=== PATIENT | female | born 1985 | race Two or more races ===

== ENCOUNTER 2019-07-26 18:10 | Inpatient (IN) | payer BC, MEDICAID ==
[~2019-07-26] VITALS: Ht 162.6 cm; Wt 81.6 kg
--- NOTE | 2019-07-26 20:20 | NUR ---
NURSE NOTES: Pt. received from Ramya, report received from Myra at [facility]. Pt. AAOx4, on room air, complaints of abdominal pain that is tolerable. No indications of respiratory distress at this time. VS stable, belongings checked and signed, and pt. oriented to room. IV site left forearm 18g asymptomatic, intact, and patent. Bed is low and locked, side rails x2 up, and call light is in reach. Awaiting orders, will continue to monitor.
[2019-07-26] MEDS ORDERED: Mylanta II UD 30ml ORAL PRN (20:45)
[2019-07-26] MEDS ORDERED: Milk of Magnesia 30ml Ud ORAL PRN (20:45)
[2019-07-26] MEDS ORDERED: LORazepam 1mg tab ORAL PRN (20:45)
[2019-07-26] MEDS ORDERED: DiphenhydrAMINE 25mg Tab ORAL PRN (20:45)
[2019-07-26] MEDS ORDERED: Morphine Sulfate 2mg/ml Inj(IV/IM USE ONLY) IVP PRN ×2 (20:45)
--- NOTE | 2019-07-26 20:45 | Consultation ---
History of Present Illness Present Illness HPI This is a very pleasant 34-year-old female otherwise healthy status post section x4 known history of cholelithiasis symptomatic who presented to [facility] with acute onset of right upper quadrant abdominal pain radiating to the back. Patient states pain began approximately 3 to 4 days ago and has been worsening since. Associated nausea and nonbloody emesis. Had a ultrasound identifying cholelithiasis, gallbladder sludge, distended gallbladder with positive Jewell sign. Pain not improving and transferred to [facility] for remainder of care and management. Surgery called to evaluate and assist with care. Patient seen, patient evaluated , chart reviewed. Patient states that she still has right upper quadrant nominal pain which is mildly better with narcotic pain medication. States pain has not resolved since onset and this is the worst episode she has had over the course of the few years. Allergies: Coded Allergies: No Known Allergies (Unverified , 07/26/19) Patient History History Provided By: Patient, Medical Record, PMD Healthcare decision maker N Resuscitation status Advanced Directive on File Past Medical/Surgical History Past Medical/Surgical History: (1) Acute cholecystitis Review of Systems Review of Symptoms General ROS: no weight loss or fever Psychological ROS: no depression or mood changes, no memory loss Ophthalmic ROS: no visual changes or eye irritation ENT ROS: no nasal congestion, hearing loss, dizziness Allergy and Immunology ROS: no allergic symptoms or urticaria Hematological and Lymphatic ROS: no swollen glands, unusual bleeding or bruising Endocrine ROS: no polyuria, polydipsia, weight changes, temperature intolerance Respiratory ROS: no cough, shortness of breath, or wheezing Cardiovascular ROS: no chest pain or dyspnea on exertion Gastrointestinal ROS:abdominal pain, bright red blood in stool. Musculoskeletal ROS: no myalgias or arthralgias Neurological ROS: no TIA or stroke symptoms Dermatological ROS: no new or changing skin lesions, rashes or pruritis Physical Exam Physical Exam General appearance: alert, cooperative, no distress, appears stated age Head: Normocephalic, without obvious abnormality, atraumatic Eyes: conjunctivae/corneas clear. PERRL, EOM's intact. Fundi benign Throat: Lips, mucosa, and tongue normal. Teeth and gums normal Neck: supple, symmetrical, trachea midline, no adenopathy, thyroid: not enlarged, symmetric, no tenderness/mass/nodules, no carotid bruit and no JVD Lungs: clear to auscultation bilaterally Heart: regular rate and rhythm, S1, S2 normal, no murmur, click, rub or gallop Abdomen: soft, RUQ tender. Bowel sounds normal. No masses, no organomegaly Extremities: extremities normal, atraumatic, no cyanosis or edema Pulses: 2+ and symmetric Skin: Skin color, texture, turgor normal. No rashes or lesions Neurologic: Grossly normal Medications Current Medications Medications (Trade) Dose Ordered Sig/Kelsey Route PRN Reason Start Time Stop Time Status Last Admin Dose Admin Acetaminophen (Tylenol) 650 mg Q4H PRN ORAL fever 07/26/19 20:45 08/25/19 20:44 UNV Al Hydroxide/Mg Hydroxide (Mylanta II) 30 ml Q6H PRN ORAL dyspepsia 07/26/19 20:45 08/25/19 20:44 UNV Dextrose (Dextrose 50%) 25 ml Q30M PRN IV Hypoglycemia 07/26/19 20:45 08/25/19 20:44 UNV Dextrose/ Electrolytes 1,000 ml @ 100 mls/hr Q10H IV 07/26/19 21:40 08/25/19 21:39 UNV Diphenhydramine HCl (Benadryl) 25 mg Q6H PRN ORAL Itching/Pruritis 07/26/19 20:45 08/25/19 20:44 UNV Docusate Sodium (Colace) 100 mg EVERY 12 HOURS ORAL 07/26/19 21:00 08/25/19 20:59 UNV Famotidine (Pepcid) 40 mg DAILY ORAL 07/27/19 09:00 08/26/19 08:59 UNV Heparin Sodium (Porcine) (Heparin 5000 units/ml) 5,000 units EVERY 12 HOURS SUBQ 07/26/19 21:00 08/25/19 20:59 UNV Lorazepam (Ativan) 1 mg Q4H PRN ORAL For Anxiety 07/26/19 20:45 08/02/19 20:44 UNV Magnesium Hydroxide (Mom) 30 ml HSPRN PRN ORAL Constipation 07/26/19 20:45 08/25/19 20:44 UNV Morphine Sulfate (Morphine Sulfate) 1 mg EVERY 4 HOURS PRN IVP For Pain 07/26/19 20:45 08/02/19 20:44 UNV Morphine Sulfate (Morphine Sulfate) 2 mg EVERY 4 HOURS PRN IVP Moderate Pain (Pain Scale 4-6) 07/26/19 20:45 08/02/19 20:44 UNV Morphine Sulfate (Morphine Sulfate) 4 mg EVERY 4 HOURS PRN IVP Severe Pain (Pain Scale 7-10) 07/26/19 20:45 08/02/19 20:44 UNV Ondansetron HCl (Zofran) 4 mg Q6H PRN IVP Nausea & Vomiting 07/26/19 20:45 08/25/19 20:44 UNV Temazepam (Restoril) 15 mg HSPRN PRN ORAL Insomnia 07/26/19 20:45 08/02/19 20:44 UNV Assessment/Plan Problem List: (1) Acute cholecystitis Assessment & Plan: This is a 34-year-old female with acute cholecystitis. Afebrile, hemodynamically stable, labs as above Ultrasound with distended gallbladder, cholelithiasis, gallbladder sludge On examination persistently tender in the right upper quadrant with a positive Jewell's I had a long discussion with the patient at the bedside in regards to above findings, care, management. Patient has been on medical management for greater than 24 hours without significant improvement still requiring narcotic pain medication. She continues to have right upper quadrant pain and is significantly tender on examination. Given these findings cholecystectomy is indicated and recommended. I discussed this with patient and she expressed understanding and states that she has known she needed her gallbladder out for some time and given the acuity and severity of this episode would like to proceed as soon as possible. N.p.o. IV fluids IV antibiotics Consent To OR for laparoscopic versus open cholecystectomy Thank you for allowing me to participate in patient's care ICD Codes: K81.0 - Acute cholecystitis SNOMED: [id number] Jeff Mi Jul 26, 2019 20:45
[2019-07-26] MEDS ORDERED: D5 1/2NS w/KCl 20mEq 1,000 ML IV SCH (21:15)
--- NOTE | 2019-07-26 21:16 | History & Physical ---
History and Physical History & Physicial Stepan Benjamin MD Jul 26, 2019 21:16
--- NOTE | 2019-07-26 22:15 | History and Physical Report ---
DATE OF ADMISSION: 07/26/2019 CHIEF COMPLAINT: Right upper quadrant abdominal pain. HISTORY OF PRESENT ILLNESS: This is a 34-year-old female with past medical history significant for migraine headaches, gallstone, who was presented initially to [facility], complaining about abdominal pain. She stated that the abdominal pain started about 6 hours prior to arrival to the emergency room, some radiation to the back, associated with nausea and vomiting. The patient stated that bilious emesis with acid reflux, no blood. The patient has known history of gallstone and stated that this pain has been persistent and much more severe than prior attacks, last attack about 6 years ago while she was shortly after lunch. 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 She had a ultrasound then performed gallstone and was concerned about a gallstone in the neck of the gallbladder. She denies any fever or chills. Denies any dysuria or frequency. She has described the pain 10/10, mostly in the epigastric and right upper quadrant, sharp, stabbing pain. Shortly after initial evaluation, the patient was evaluated in the emergency department. The patient was transferred to [facility] for further evaluation and possible surgical intervention. The patient was admitted to the hospital with acute cholecystitis. PAST MEDICAL HISTORY: Significant for gallstones and migraine headache. PAST SURGICAL HISTORY: Significant for . MEDICATIONS: Medications at home, Tylenol p.r.n. as needed for migraine headache. ALLERGIES: No known drug allergies. SOCIAL HISTORY: She smokes three cigarettes a day. Social drinks. No substance abuse. She is a MA, works in the [employer]. FAMILY HISTORY: Mother with history of hypertension and diabetes runs in the maternal side. Grandmother with history of liver cancer and . Grandfather with history of heart disease. REVIEW OF SYSTEMS: Mostly as above. Denies any dysuria, frequency, hematuria. Denies any hemoptysis or hematochezia, complained about right upper quadrant abdominal pain associated with nausea and vomiting. Denies any fall or head trauma. Denies any suicidal or homicidal ideation. PHYSICAL EXAMINATION: VITAL SIGNS: On admission from the ER at [facility], blood pressure 106/51, pulse of 68, respiration 18, temperature 98.1. GENERAL: The patient is awake and responsive, in no acute distress. HEAD AND NECK: Pupils are equal and reactive to light. Anicteric. Neck was supple. No JVD. LUNGS: Clear. No wheezing or rales. HEART: S1, S2. Regular rhythm. No gallops. ABDOMEN: Soft, nondistended. Tender in the right upper quadrant. No rebound tenderness. No fluid shift. EXTREMITIES: No cyanosis, clubbing, or edema. NEUROLOGIC: Cranial nerves II through XII grossly intact. Motor is 5/5 in all extremities. RECTAL/GENITOURINARY: Refused and deferred. PSYCHIATRIC: Mood and affect is intact. LABORATORY DATA: Laboratory from the [facility], CBC of 8.1, hemoglobin 13, hematocrit 41, platelet 246,000. Sodium 137, potassium 3.7, chloride 104, bicarb 23, BUN 9, creatinine 0.7, GFR is 106. Total bilirubin of 0.6, AST of 13, ALT of 24, and lipase is 7. Beta HCG less than 1. The patient had a abdominal ultrasound done, noted to have cholecystitis with gallbladder, demonstrated multiple calculi, at least 1 calculi appear to be large in the neck of the gallbladder and one appeared mobile. Sludge visualized in the gallbladder. Positive sonographic Jewell sign. ASSESSMENT: 1. Right upper quadrant pain, most likely secondary to the gallstone and acute cholecystitis. 2. Dehydration. 3. Migraine headache. PLAN: 1. Admit the patient to the surgical floor. 2. We will follow up with Dr. Mi. 3. Consultation from General Surgery. 4. Kept the patient NPO. 5. IV hydration. 6. Code status is Full Code. 7. DVT prophylaxis, heparin subcutaneous. 8. We will start the patient on broad-spectrum antibiotic with Zosyn. Stepan Benjamin M.D. DR: HU JOB#: [id number] CC:
[2019-07-26] MEDS: Piperacillin/Tazobactam 3.375 GM in NS 110 ML IVPB SCH (22:17)
[2019-07-26] MEDS: D5 1/2NS w/KCl 20mEq 1,000 ML IV SCH (22:17)
[2019-07-26] MEDS: Docusate 100mg cap ORAL SCH (22:17)
[2019-07-27] VITALS (13 sets, daily range): BP systolic 96–146; BP diastolic 41–88
[2019-07-27] MEDS: Morphine Sulfate 4mg/ml Inj (IV USE ONLY) IVP PRN ×3 (00:41→20:03)
--- NOTE | 2019-07-27 02:45 | NUR ---
NURSE NOTES: Pt up to use the restroom, ambulates with steady gait. at beside.
[2019-07-27] MEDS: Piperacillin/Tazobactam 3.375 GM in NS 110 ML IVPB SCH ×3 (06:22→21:44)
[2019-07-27 06:40] LABS: EOSINOPHILS % (AUTO) 2.2 % (0.0-3.0); HEMATOCRIT 37.4 % (37.0-47.0); HEMOGLOBIN 12.6 G/DL (12.0-16.0); LYMPHOCYTES % (AUTO) 34.8 % (20.0-45.0); MEAN CORPUSCULAR VOLUME 85 FL (80-99); MONOCYTES % (AUTO) 6.7 % (1.0-10.0); NEUTROPHILS % (AUTO) 55.2 % (45.0-75.0); PLATELET COUNT 179 K/UL (150-450); RED BLOOD COUNT 4.39 M/UL (4.20-5.40); RED CELL DISTRIBUTION WIDTH 12.4 % (11.6-14.8); WHITE BLOOD COUNT 5.4 K/UL (4.8-10.8)
[2019-07-27 06:54] LABS: ALANINE AMINOTRANSFERASE 32 U/L (12-78); ALBUMIN 2.9 G/DL (3.4-5.0); ALBUMIN/GLOBULIN RATIO 0.8 (1.0-2.7); ALKALINE PHOSPHATASE 54 U/L (46-116); AMYLASE 16 U/L (25-115); ANION GAP 8 mmol/L (5-15); ASPARTATE AMINO TRANSFERASE 17 U/L (15-37); BILIRUBIN,TOTAL 0.8 MG/DL (0.2-1.0); BLOOD UREA NITROGEN 8 mg/dL (7-18); CALCIUM 8.2 MG/DL (8.5-10.1); CARBON DIOXIDE 26 MMOL/L (21-32); CHLORIDE 108 MMOL/L (98-107); CREATININE 0.7 MG/DL (0.55-1.30); POTASSIUM 3.5 MMOL/L (3.5-5.1); SODIUM 142 MMOL/L (136-145)
--- NOTE | 2019-07-27 07:24 | NUR ---
HAND-OFF: Report given to SENDY Gates.
[2019-07-27 07:58] LABS: PHOSPHORUS 4.2 MG/DL (2.5-4.9)
[2019-07-27] MEDS: D5 1/2NS w/KCl 20mEq 1,000 ML IV SCH (08:00)
--- NOTE | 2019-07-27 08:45 | NUR ---
CASE MANAGEMENT: INITIAL REVIEW 34YR OLD FEMALE FROM [place] CC: ABD PAIN IS:ACUTE CHOLECYSTIS . DEHYDRATION . MIGRAINE HEADACHE 98.0 51 20 109/50 88% ON RA CA+ 8.2 MG 1.7 ALB 2.9 VEE 16 LIPASE 56 SI:IV ZOSYN Q8HR IV D5@100ML/HR MORPHINE SULFATE Q4HR/PRN \: 3E MED SURG UNIT PLAN: SURG CONSULT NPO IV HYDRATION
[2019-07-27] MEDS: Heparin 5000 units/ml inj SUBQ SCH ×2 (09:00→20:04)
[2019-07-27] MEDS: Docusate 100mg cap ORAL SCH ×2 (09:41→21:08)
--- NOTE | 2019-07-27 10:18 | Pre-Procedure Note/Attestation ---
Pre-Procedure Note/Attestation Complete Prior to Procedure Planned Procedure: not applicable Procedure Narrative: laparoscopic cholecystectomy possible open Indications for Procedure Pre-Operative Diagnosis: acute cholecystitis Attestation I attest that I discussed the nature of the procedure; its benefits; risks and complications; and alternatives (and the risks and benefits of such alternatives ), prior to the procedure, with the patient (or the patient's legal inventory representative). I attest that, if there was a reasonable possibility of needing a blood transfusion, the patient (or the patient's legal inventory representative) was given the [facility] standardized written summary, pursuant to the Kyle Itzel Blood Safety Act ([place] Health and Safety Code # 1645, as amended). I attest that I re-evaluated the patient just prior to the surgery and that there has been no change in the patient's H&P, except as documented below: Jeff Mi Jul 27, 2019 10:18
[2019-07-27] MEDS ORDERED: Tubing IV Secondary IV ONE (10:52)
[2019-07-27] MEDS ORDERED: Iothalamate Meglumine 60% 50ML INJ ONE (12:08)
[2019-07-27] MEDS ORDERED: Bupivacaine w/Epi 0.5% 30ml Vial INJ ONE (12:08)
[2019-07-27] MEDS ORDERED: Rocuronium Bromide 50mg/5ml Inj IV ONE (12:40)
[2019-07-27] MEDS ORDERED: Propofol 200mg/20ml IV ONE (12:49)
[2019-07-27] MEDS ORDERED: fentaNYL 100 mcg/2 mL IV ONE (12:49)
[2019-07-27] MEDS ORDERED: Midazolam 2mg/2ml Inj ONE (12:49)
[2019-07-27] MEDS ORDERED: Lidocaine 1% MPF 10mg/ml 5ml ONE (12:49)
[2019-07-27] MEDS ORDERED: LR 1000ml ONE (13:00)
[2019-07-27] MEDS ORDERED: Sterile Water Irrig 1000ml IRRIG ONE (13:00)
[2019-07-27] MEDS ORDERED: NS Irrig 1000ml IRRIG ONE ×3 (13:15→13:40)
--- NOTE | 2019-07-27 13:26 | Anethesia Preoperative Eval ---
Anesthesia Pre-op PMH/ROS General Date of Evaluation: Jul 27, 2019 Anesthesiologist: Fabio ASA Score: ASA 2 Mallampati Score Class I : Soft palate, uvula, fauces, pillars visible Class II: Soft palate, uvula, fauces visible Class III: Soft palate, base of uvula visible Class IV: Only hard plate visible Mallampati Classification: Class II Surgeon: Shmuel Diagnosis: acute cholecystitis Surgical Procedure: lalp freddy Anesthesia History: none Family History: no anesthesia problems Allergies: Coded Allergies: No Known Allergies (Unverified , 07/26/19) Medications: see eMAR Patient NPO?: Yes NPO Date: Jul 27, 2019 NPO Time: 0000 Past Medical History Cardiovascular: Denies: HTN, CAD, DC, valve dz, arrhythmia, other Pulmonary: Denies: asthma, COPD, JANIYA, other Gastrointestinal/Genitourinary: Reports: GERD; Denies: CRI, ESRD, other Neurologic/Psychiatric: Denies: dementia, CVA, depression/anxiety, TIA, other Endocrine: Denies: DM, hypothyroidism, steroids, other HEENT: Denies: cataract (L), cataract (R), glaucoma, [place] (L), [place] (R), other Hematology/Immune: Denies: anemia, DVT, bleeding disorder, other Musculoskeletal/Integumentary: Denies: OA, RA, DJD, DDD, edema, other Other: obesity PSxH Narrative: c/s X4 Anesthesia Pre-op Phys. Exam Physician Exam Last Vital Signs Date Time Temp Pulse Resp B/P (MAP) Pulse Ox O2 Delivery O2 Flow Rate FiO2 07/27/19 08:00 98.2 51 18 96/41 (59) 96 07/26/19 22:00 Room Air Constitutional: NAD, other - right eye red and cloudy Cardiovascular: RRR Respiratory: CTA Airway Exam Mallampati Score: Class II MO: full ROM: full Teeth: missing - top, partial bridge, intact Dentures: upper Anesthesia Pre-op A/P Labs Hematology Test 07/27/19 05:35 White Blood Count 5.4 K/UL (4.8-10.8) Red Blood Count 4.39 M/UL (4.20-5.40) Hemoglobin 12.6 G/DL (12.0-16.0) Hematocrit 37.4 % (37.0-47.0) Mean Corpuscular Volume 85 FL (80-99) Mean Corpuscular Hemoglobin 28.6 PG (27.0-31.0) Mean Corpuscular Hemoglobin Concent 33.6 G/DL (32.0-36.0) Red Cell Distribution Width 12.4 % (11.6-14.8) Platelet Count 179 K/UL (150-450) Mean Platelet Volume 7.2 FL (6.5-10.1) Neutrophils (%) (Auto) 55.2 % (45.0-75.0) Lymphocytes (%) (Auto) 34.8 % (20.0-45.0) Monocytes (%) (Auto) 6.7 % (1.0-10.0) Eosinophils (%) (Auto) 2.2 % (0.0-3.0) Basophils (%) (Auto) 1.0 % (0.0-2.0) Coagulation Test 07/27/19 05:35 Prothrombin Time 10.8 SEC (9.30-11.50) Prothromb Time International Ratio 1.0 (0.9-1.1) Activated Partial Thromboplast Time 31 SEC (23-33) Chemistry Test 07/27/19 05:35 Sodium Level 142 MMOL/L (136-145) Potassium Level 3.5 MMOL/L (3.5-5.1) Chloride Level 108 MMOL/L (98-107) H Carbon Dioxide Level 26 MMOL/L (21-32) Anion Gap 8 mmol/L (5-15) Blood Urea Nitrogen 8 mg/dL (7-18) Creatinine 0.7 MG/DL (0.55-1.30) Estimat Glomerular Filtration Rate > 60 mL/min (>60) Glucose Level 82 MG/DL (74-106) Calcium Level 8.2 MG/DL (8.5-10.1) L Phosphorus Level 4.2 MG/DL (2.5-4.9) Magnesium Level 1.7 MG/DL (1.8-2.4) L Total Bilirubin 0.8 MG/DL (0.2-1.0) Aspartate Amino Transf (AST/SGOT) 17 U/L (15-37) Alanine Aminotransferase (ALT/SGPT) 32 U/L (12-78) Alkaline Phosphatase 54 U/L (46-116) Total Protein 6.5 G/DL (6.4-8.2) Albumin 2.9 G/DL (3.4-5.0) L Globulin 3.6 g/dL Albumin/Globulin Ratio 0.8 (1.0-2.7) L Amylase Level 16 U/L (25-115) L Lipase 56 U/L (73-393) L Urine Test negative, from [place] records, 07/25/19 Risk Assessment & Plan Assessment: ASA II Plan: GA Status Change Before Surgery: No Pre-Antibiotics Drug: ancef 2g Given Within 1 Hr of Incision: Yes Magdalene Booth MD Jul 27, 2019 13:26
[2019-07-27] MEDS ORDERED: LR 1000ml 1,000 ML IVLG SCH (13:32)
[2019-07-27] MEDS ORDERED: Hydromorphone 0.5mg/0.5ml inj IVP PRN (13:45)
[2019-07-27] MEDS ORDERED: fentaNYL 100 mcg/2 mL IV PRN (13:45)
[2019-07-27] MEDS ORDERED: LORazepam Inj 2mg/ml 1ml IV PRN (13:45)
[2019-07-27] MEDS ORDERED: Midazolam 2mg/2ml Inj IVP PRN (13:45)
[2019-07-27] MEDS ORDERED: Metoclopramide 10mg/2ml Inj IVP PRN (13:45)
[2019-07-27] MEDS ORDERED: DiphenhydrAMINE 50mg/ml Inj IVP PRN (13:45)
--- NOTE | 2019-07-27 14:15 | Brief Operative Note ---
Immediate Post Operative Note Operative Note Pre-op Diagnosis: acute cholecystitis Procedure: lap freddy Post-op Diagnosis: same as pre-op Surgeon: helga Anesthesiologist: judit Anesthesia: general, local Specimen: yes Complications: none Condition: stable Fluids: see records Estimated Blood Loss: minimal Drains: none Implant(s) used?: No Jeff Mi Jul 27, 2019 14:15
[2019-07-27] MEDS ORDERED: D5 1/2NS w/KCl 20mEq 1,000 ML IV SCH (14:17)
--- NOTE | 2019-07-27 14:22 | Immediate Post-Op Evaluation ---
Immediate Post-Op Evalulation Immediate Post-Op Evalulation Procedure: lap freddy Date of Evaluation: Jul 27, 2019 Time of Evaluation: 14:24 IV Fluids: 700 Blood Products: 0 Estimated Blood Loss: min Urinary Output: 0 Blood Pressure Systolic: 139 Blood Pressure Diastolic: 70 Pulse Rate: 77 Respiratory Rate: 16 O2 Sat by Pulse Oximetry: 100 Temperature (Fahrenheit): 98.6 Pain Score (1-10): 0 Nausea: No Vomiting: No Complications 0 Patient Status: awake, reacts, patent, none Hydration Status: adequate Drug: Ancef 2g Given Within 1 Hr of Incision: Yes Magdalene Booth MD Jul 27, 2019 14:22
--- NOTE | 2019-07-27 14:41 | NUR ---
NURSE NOTES: DR NUÑEZ WITH PRESCRIPTIONS FOR NORCO AND COLACE. PER DR NUÑEZ, PT MAY BE DISCHARGED TOMORROW. BEFORE DISCHARGE, DR NUÑEZ WOULD LIKE TO SPEAK TO PT. CRN MADE AWARE. WILL ENDORSE TO NEXT RN.
--- NOTE | 2019-07-27 15:30 | NUR ---
*-* INSURANCE *-* ALL CLINICALS AND REVIEWS HAVE BEEN FAXED TO: Ref# [id number] # [phone] FAX#[phone]
--- NOTE | 2019-07-27 15:48 | NUR ---
NURSE NOTES: PT ARRIVED TO UNIT FROM PACU IN STABLE CONDITION. VSS. PT COMPLAINS OF PAIN IN LOWER ABDOMEN. RN EDUCATED ON PRN MEDICATIONS, MORPHINE AND ZOFRAN. PT AGREES TO TAKE MEDICATIONS FOR SEVERE PAIN AND NAUSEA. RN ADMINISTERED IVF ORDERED. PT HAS 4 LAP SITES: STERI-STRIPS, 2X2, AND TEGADERM. SITES ARE CLEAN AND DRY. WILL CONTINUE TO MONITOR.
--- NOTE | 2019-07-27 17:21 | Internal Med Progress Note ---
Subjective Physician Name Stepan Benjamin Attending Physician Stepan Benjamin MD Current Medications Medications (Trade) Dose Ordered Sig/Kelsey Route PRN Reason Start Time Stop Time Status Last Admin Dose Admin Acetaminophen (Tylenol) 650 mg Q4H PRN ORAL fever 07/26/19 20:45 08/25/19 20:44 07/27/19 03:22 Al Hydroxide/Mg Hydroxide (Mylanta II) 30 ml Q6H PRN ORAL dyspepsia 07/26/19 20:45 08/25/19 20:44 Dextrose (Dextrose 50%) 25 ml Q30M PRN IV Hypoglycemia 07/26/19 20:45 08/25/19 20:44 Dextrose (Dextrose 50%) 50 ml Q30M PRN IV Hypoglycemia 07/26/19 20:45 08/25/19 20:44 Dextrose/ Electrolytes 1,000 ml @ 50 mls/hr Q20H IV 07/27/19 14:17 08/26/19 14:16 07/27/19 15:36 Diphenhydramine HCl (Benadryl) 25 mg Q6H PRN ORAL Itching/Pruritis 07/26/19 20:45 08/25/19 20:44 Docusate Sodium (Colace) 100 mg EVERY 12 HOURS ORAL 07/26/19 21:00 08/25/19 20:59 07/27/19 09:41 Famotidine (Pepcid) 40 mg DAILY ORAL 07/27/19 09:00 08/26/19 08:59 Heparin Sodium (Porcine) (Heparin 5000 units/ml) 5,000 units EVERY 12 HOURS SUBQ 07/27/19 09:00 08/26/19 08:59 Lorazepam (Ativan) 1 mg Q4H PRN ORAL For Anxiety 07/26/19 20:45 08/02/19 20:44 Magnesium Hydroxide (Mom) 30 ml HSPRN PRN ORAL Constipation 07/26/19 20:45 08/25/19 20:44 Morphine Sulfate (Morphine Sulfate) 1 mg Q4H PRN IVP Mild Pain (Pain Scale 1-3) 07/26/19 20:45 08/02/19 20:44 Morphine Sulfate (Morphine Sulfate) 2 mg Q4H PRN IVP Moderate Pain (Pain Scale 4-6) 07/26/19 20:45 08/02/19 20:44 07/27/19 08:06 Morphine Sulfate (Morphine Sulfate) 4 mg Q4H PRN IVP Severe Pain (Pain Scale 7-10) 07/26/19 20:45 08/02/19 20:44 07/27/19 15:33 Ondansetron HCl (Zofran) 4 mg Q6H PRN IVP Nausea & Vomiting 07/26/19 20:45 08/25/19 20:44 07/27/19 15:33 Piperacillin Sod/ Tazobactam Sod 3.375 gm/Sodium Chloride 110 ml @ 27.5 mls/hr EVERY 8 HOURS IVPB 07/26/19 22:00 07/31/19 21:59 07/27/19 06:22 Temazepam (Restoril) 15 mg HSPRN PRN ORAL Insomnia 07/26/19 20:45 08/02/19 20:44 Allergies: Coded Allergies: No Known Allergies (Unverified , 07/26/19) Subjective Awake, alert, responsive, complains of abdominal pain, status post a laparoscopic cholecystectomy today. Objective Last Vital Signs Date Time Temp Pulse Resp B/P (MAP) Pulse Ox O2 Delivery O2 Flow Rate FiO2 07/27/19 16:00 97.8 60 130/74 (92) 07/27/19 15:15 15 100 Nasal Cannula 3 Laboratory Tests Test 07/27/19 05:35 White Blood Count 5.4 K/UL (4.8-10.8) Red Blood Count 4.39 M/UL (4.20-5.40) Hemoglobin 12.6 G/DL (12.0-16.0) Hematocrit 37.4 % (37.0-47.0) Mean Corpuscular Volume 85 FL (80-99) Mean Corpuscular Hemoglobin 28.6 PG (27.0-31.0) Mean Corpuscular Hemoglobin Concent 33.6 G/DL (32.0-36.0) Red Cell Distribution Width 12.4 % (11.6-14.8) Platelet Count 179 K/UL (150-450) Mean Platelet Volume 7.2 FL (6.5-10.1) Neutrophils (%) (Auto) 55.2 % (45.0-75.0) Lymphocytes (%) (Auto) 34.8 % (20.0-45.0) Monocytes (%) (Auto) 6.7 % (1.0-10.0) Eosinophils (%) (Auto) 2.2 % (0.0-3.0) Basophils (%) (Auto) 1.0 % (0.0-2.0) Prothrombin Time 10.8 SEC (9.30-11.50) Prothromb Time International Ratio 1.0 (0.9-1.1) Activated Partial Thromboplast Time 31 SEC (23-33) Sodium Level 142 MMOL/L (136-145) Potassium Level 3.5 MMOL/L (3.5-5.1) Chloride Level 108 MMOL/L (98-107) H Carbon Dioxide Level 26 MMOL/L (21-32) Anion Gap 8 mmol/L (5-15) Blood Urea Nitrogen 8 mg/dL (7-18) Creatinine 0.7 MG/DL (0.55-1.30) Estimat Glomerular Filtration Rate > 60 mL/min (>60) Glucose Level 82 MG/DL (74-106) Calcium Level 8.2 MG/DL (8.5-10.1) L Phosphorus Level 4.2 MG/DL (2.5-4.9) Magnesium Level 1.7 MG/DL (1.8-2.4) L Total Bilirubin 0.8 MG/DL (0.2-1.0) Aspartate Amino Transf (AST/SGOT) 17 U/L (15-37) Alanine Aminotransferase (ALT/SGPT) 32 U/L (12-78) Alkaline Phosphatase 54 U/L (46-116) Total Protein 6.5 G/DL (6.4-8.2) Albumin 2.9 G/DL (3.4-5.0) L Globulin 3.6 g/dL Albumin/Globulin Ratio 0.8 (1.0-2.7) L Amylase Level 16 U/L (25-115) L Lipase 56 U/L (73-393) L Intake and Output 07/26/19 07/27/19 19:00 07:00 Intake Total 510.0 ml Balance 510.0 ml Intake IV Total 510.0 ml # Voids 1 Objective GENERAL: The patient is awake and responsive, in no acute distress. HEAD AND NECK: Pupils are equal and reactive to light. Anicteric. Neck was supple. No JVD. LUNGS: CTA. No wheezing or rales. HEART: S1, S2. Regular rhythm. No gallops. ABDOMEN: Soft, nondistended. Tender in the right upper quadrant. No rebound tenderness. No fluid shift. Laparoscopic surgical incision intact. EXTREMITIES: No cyanosis, clubbing, or edema. NEUROLOGIC: Cranial nerves II through XII grossly intact. Motor is 5/5 in all extremities. RECTAL/GENITOURINARY: Refused and deferred. PSYCHIATRIC: Mood and affect is intact. Assessment/Plan Assessment/Plan ASSESSMENT: 1. Right upper quadrant pain, most likely secondary to the gallstone and acute cholecystitis status post of laparoscopic cholecystectomy (July 27, 2019). 2. Dehydration. 3. Migraine headache. PLAN: Admit the patient to the surgical floor. We will follow up with Dr. Mi consultation from General Surgery. IV hydration. Code status is Full Code. DVT prophylaxis, heparin subcutaneous. Broad-spectrum antibiotic: Zosyn. Stepan Benjamin MD Jul 27, 2019 17:20
--- NOTE | 2019-07-27 17:36 | 48 Hour Post Anesthesia Eval ---
Post Anesthesia Evaluation Procedure: lap freddy Date of Evaluation: Jul 27, 2019 Time of Evaluation: 17:36 Blood Pressure Systolic: 130 0: 74 Pulse Rate: 62 Respiratory Rate: 14 O2 Sat by Pulse Oximetry: 98 Airway: patent Nausea: No Vomiting: No If pain is > 6 Comment: 6 Hydration Status: adequate Cardiopulmonary Status: stable Mental Status/LOC: patient returned to baseline Post-Anesthesia Complications: none Follow-up care needed: N/A Cecily Casanova CRNA Jul 27, 2019 17:36
--- NOTE | 2019-07-27 18:00 | NUR ---
NURSE NOTES: PT AMBULATING WITH . PT AMBULATED AROUND UNIT. PT WITH NAUSEA AND PAIN. NO EMESIS. PT EDUCATED ON PRN MORPHINE AND ZOFRAN SCHEDULE. PT VERBALIZED UNDERSTANDING. IN NO APPARENT DISTRESS AT THIS TIME. WILL CONTINUE TO MONITOR.
--- NOTE | 2019-07-27 18:15 | Operative Note - Dictated ---
DATE OF OPERATION: 07/27/2019 PREOPERATIVE DIAGNOSIS: Acute cholecystitis. POSTOPERATIVE DIAGNOSIS: Acute cholecystitis. OPERATION PERFORMED: Laparoscopic cholecystectomy. ATTENDING SURGEON: Jeff Mi M.D. SHELL PLATER: None. ANESTHESIOLOGIST: Dr. Fabio Diego. ANESTHESIA: General TYPEWRITER RIBBON WINDER plus local. ESTIMATED BLOOD LOSS: Minimal. IV FLUIDS: Please see anesthesia records. COMPLICATIONS: None. DRAINS: None. COUNTS: Sponge and needle counts correct x2. SPECIMENS: Gallbladder contained stones sent to pathology for review. WOUND CLASSIFICATION: Class III. ANTIBIOTICS: The patient is on scheduled IV Zosyn. INDICATIONS FOR PROCEDURE: This 34-year-old female with known history of cholelithiasis, symptomatic in the past, who presented to [facility] yesterday with acute severe right upper quadrant pain radiating to the back with associated nausea and emesis. The patient was identified to have acute cholecystitis and transferred to [facility] for remainder of care and management. The patient continued to have persistent right upper quadrant pain with focal right upper quadrant tenderness, positive Jewell sign, and cholelithiasis indicative of acute cholecystitis not responding to medical management. Given these findings, surgery was indicated and recommended. Risks, benefits, and alternatives were discussed with the patient in detail. The patient expressed understanding and consented to the procedure. OPERATIVE NOTE: The patient was taken to the operating room and placed on the operating room table in supine position with bilateral arms out. All bony prominences were well padded. SCDs placed. Preoperative time-out was taken identifying the patient, procedure, operative and surgical staff. General anesthesia was induced and the patient was intubated. The abdomen was clipped, prepped, and draped in the standard surgical fashion. A local anesthetic was infiltrated on skin incision and port sites throughout the procedure. An infraumbilical incision was made using a fresh #11 scalpel and carried down to the fascia, was elevated and incised. Entry into the abdomen was obtained using open He technique without complication. A 12 mm Eh trocar was inserted and the abdomen was insufflated to 12 to 15 mmHg. No injury from initial trocar placement noted. Laparoscope was inserted and the abdomen was inspected. The patient was placed in the reverse Trendelenburg with left side down. Secondary trocars were placed under direct visualization beginning with a 12 mm subxiphoid followed by two 5 mm right subcostal. Omental adhesions to the gallbladder were gently taken down using blunt dissection and electrocautery. Gallbladder dome was identified, grasped, and retracted using the most lateral port over the liver. The infundibulum was identified, noted to be with significant inflammation and grasped using the midclavicular port. Gentle dissection around the infundibulum clearly identified the cystic duct and artery and a critical view was obtained. The cystic duct and artery were carefully dissected out and circumferentially dissected out. The cystic artery was doubly clipped and divided with the Calot's node with the specimen. Following this, only remaining structure entering into the gallbladder infundibulum was the cystic duct. The cystic duct was doubly clipped and divided. The gallbladder was taken off the liver attachments using electrocautery. Of note, there was significant edema around the gallbladder identified with inflammation being noted. The gallbladder was then placed in endoscopic retrieval bag and removed from the abdomen using the subxiphoid port. The right upper quadrant was irrigated and cleansed until clear. Clips were identified on the cystic duct and artery without bleeding or leakage of bile. The liver bed was hemostatic. Satisfactory laparoscopic cholecystectomy was performed and identified without complication. Surgicel was left in the liver bed. The remainder of the abdomen was inspected and no other abnormalities noted. There were adhesions in the lower abdomen obtained from the patient's four prior sections. The portions of the lower abdomen that could be identified were intact and stable without complications, stable. Secondary trocars were removed under direct visualization followed by the umbilical trocar site. The umbilical trocar site fascia and the subxiphoid trocar site fascia reapproximated using [id number] #0 Vicryl sutures. The skin incisions were cleansed and reapproximated using 4-0 Monocryl subcuticular interrupted sutures. Skin glue and Steri-Strips were applied. The patient tolerated the procedure well, was extubated and taken to postanesthetic care unit in stable condition. Jeff Mi M.D. DR: ZAHIDA JOB#: [id number] CC: IVIS
--- NOTE | 2019-07-27 19:20 | NUR ---
HAND-OFF: Report given to Angelito HENRY RN.
--- NOTE | 2019-07-27 19:26 | NUR ---
NURSE NOTES: Patient in bed, sleeping at this time. No signs of distress or SOB. 4 x surgical sites noted on abdomen. Dressing dry and intact. Left hand IV running IVF as ordered. IS at bedside. Bed locked and in lowest position. Call light in easy reach. Will continue plan of care.
[2019-07-28] VITALS: BP 98/56
[2019-07-28] MEDS: Morphine Sulfate 4mg/ml Inj (IV USE ONLY) IVP PRN ×2 (00:37→05:22)
[2019-07-28 04:00] VITALS: BP 107/63
[2019-07-28] MEDS: Piperacillin/Tazobactam 3.375 GM in NS 110 ML IVPB SCH (05:20)
[2019-07-28 05:38] LABS: BASOPHILS % (AUTO) 0.7 % (0.0-2.0); EOSINOPHILS % (AUTO) 1.7 % (0.0-3.0); HEMATOCRIT 39.2 % (37.0-47.0); HEMOGLOBIN 13.3 G/DL (12.0-16.0); LYMPHOCYTES % (AUTO) 22.6 % (20.0-45.0); MEAN CORPUSCULAR VOLUME 85 FL (80-99); MONOCYTES % (AUTO) 7.8 % (1.0-10.0); NEUTROPHILS % (AUTO) 67.3 % (45.0-75.0); PLATELET COUNT 207 K/UL (150-450); RED CELL DISTRIBUTION WIDTH 12.5 % (11.6-14.8); WHITE BLOOD COUNT 8.5 K/UL (4.8-10.8)
[2019-07-28 06:13] LABS: ALANINE AMINOTRANSFERASE 115 U/L (12-78); ALBUMIN/GLOBULIN RATIO 0.8 (1.0-2.7); ALKALINE PHOSPHATASE 62 U/L (46-116); ANION GAP 7 mmol/L (5-15); ASPARTATE AMINO TRANSFERASE 84 U/L (15-37); BILIRUBIN,TOTAL 0.7 MG/DL (0.2-1.0); BLOOD UREA NITROGEN 5 mg/dL (7-18); CALCIUM 8.4 MG/DL (8.5-10.1); CARBON DIOXIDE 29 MMOL/L (21-32); CHLORIDE 105 MMOL/L (98-107); CREATININE 0.7 MG/DL (0.55-1.30); POTASSIUM 3.8 MMOL/L (3.5-5.1); SODIUM 140 MMOL/L (136-145)
--- NOTE | 2019-07-28 07:28 | NUR ---
NURSE NOTES: Received pt from SENDY Alfaro. pt was resting comfortably no acute distress, surgical dressing site clean and dry. call light w/in reach. planning to discharge home today.
--- NOTE | 2019-07-28 07:39 | NUR ---
HAND-OFF: Report given to SENDY Gilmore.
[2019-07-28 08:00] VITALS: BP 116/71
--- NOTE | 2019-07-28 08:00 | NUR ---
NURSE NOTES: Received pt from SENDY Alfaro. pt was resting, c/o migraine. abd surgical site was clean and dry. IV on left hand patent. clean. call light w/in reach. discharge plan today. will keep continuing care.
[2019-07-28] MEDS: Docusate 100mg cap ORAL SCH (08:11)
[2019-07-28] MEDS: Heparin 5000 units/ml inj SUBQ SCH (08:20)
--- NOTE | 2019-07-28 09:23 | Consultation ---
History of Present Illness General Date patient seen: Jul 28, 2019 Time patient seen: 08:00 Chief Complaint: abd pain Referring physician: dr Benjamin Reason for Consultation: in hospital management Present Illness HPI 34 years old female with past medical history significant for migraine headaches , gallstones, strong family history of gallstones, initially presented to [facility] complaining of abdominal pain, started 6 hours prior to arrival to emergency room with radiation to the back and associated with the nausea and vomiting. Pain reported as severe and persistent. Pain described as 10 out of 10 , located in epigastric and right upper quadrant , sharp and stabbing. No fever or chills. No dysuria or frequency. Shortly after initial evaluation patient was transferred to [facility] for further evaluation and possible surgical intervention . Patient was admitted for acute cholecystitis. At the time of evaluation patient status post laparoscopic cholecystectomy. Patient afebrile pain control started on diet and was able to tolerate it. Allergies: Coded Allergies: No Known Allergies (Unverified , 07/26/19) Medication History Scheduled PRN Docusate Sodium* (Colace*), 100 MG ORAL TWICE A DAY PRN for Constipation, ( Reported) Hydrocodone Bit/Acetaminophen 5-325* (Penrose 5-325*), 1 TAB ORAL Q4H PRN for For Pain, (Reported) Patient History History Provided By: Patient Healthcare decision maker N Resuscitation status Full Code Advanced Directive on File Past Medical/Surgical History Past Medical/Surgical History: (1) Migraine headache (2) Cholelithiasis Review of Systems Constitutional: Reports: no symptoms Eye: Reports: no symptoms Respiratory: Reports: no symptoms Cardiovascular: Reports: no symptoms Gastrointestinal: Reports: see HPI Genitourinary: Reports: no symptoms Musculoskeletal: Reports: no symptoms Skin: Reports: no symptoms Psychiatric: Reports: no symptoms Neurological: Reports: no symptoms Endocrine: Reports: no symptoms Hematologic/Lymphatic: Reports: no symptoms Physical Exam General Appearance: WD/WN, no apparent distress, alert Lines, tubes and drains: peripheral HEENT: normocephalic, atraumatic, anicteric, mucous membranes moist, PERRL Neck: non-tender, supple Respiratory/Chest: chest wall non-tender, lungs clear, normal breath sounds Cardiovascular/Chest: normal peripheral pulses, normal rate, no JVD Abdomen: normal bowel sounds, soft, other - mild tenderness RUQ Skin Exam: normal pigmentation, warm/dry, other - 2 small surgical incisions with dressing, C/D/i Neurologic: supervisor files II-XII grossly normal, alert, oriented x 3, responsive Musculoskeletal: normal muscle bulk Last 24 Hour Vital Signs Date Time Temp Pulse Resp B/P (MAP) Pulse Ox O2 Delivery O2 Flow Rate FiO2 07/28/19 08:00 97.9 75 116/71 (86) 100 07/28/19 04:00 98.2 67 107/63 (78) 100 07/28/19 00:00 97.7 60 98/56 (70) 07/27/19 20:51 Room Air 07/27/19 20:00 97.4 57 118/64 (82) 07/27/19 17:36 62 14 98 07/27/19 16:00 97.8 60 130/74 (92) 07/27/19 15:30 74 123/70 (87) 07/27/19 15:15 98.4 52 15 135/70 100 Nasal Cannula 3 07/27/19 15:00 53 14 134/66 100 Nasal Cannula 3 07/27/19 14:50 56 16 146/72 100 Nasal Cannula 3 07/27/19 14:40 58 19 144/88 100 Nasal Cannula 3 07/27/19 14:30 60 17 135/65 100 Simple Mask 6 07/27/19 14:25 69 18 133/66 100 Simple Mask 6 07/27/19 14:22 77 16 100 07/27/19 14:19 98.6 77 16 139/70 100 Simple Mask 6 Intake and Output 07/27/19 07/28/19 19:00 07:00 Intake Total 1110.0 ml 240 ml Output Total 20 ml Balance 1090.0 ml 240 ml Intake Oral 240 ml IV Total 1110.0 ml Output Estimated Blood Loss 20 ml # Voids 3 Laboratory Tests Test 07/28/19 04:35 White Blood Count 8.5 K/UL (4.8-10.8) # Red Blood Count 4.60 M/UL (4.20-5.40) Hemoglobin 13.3 G/DL (12.0-16.0) Hematocrit 39.2 % (37.0-47.0) Mean Corpuscular Volume 85 FL (80-99) Mean Corpuscular Hemoglobin 28.9 PG (27.0-31.0) Mean Corpuscular Hemoglobin Concent 34.0 G/DL (32.0-36.0) Red Cell Distribution Width 12.5 % (11.6-14.8) Platelet Count 207 K/UL (150-450) Mean Platelet Volume 7.7 FL (6.5-10.1) Neutrophils (%) (Auto) 67.3 % (45.0-75.0) Lymphocytes (%) (Auto) 22.6 % (20.0-45.0) Monocytes (%) (Auto) 7.8 % (1.0-10.0) Eosinophils (%) (Auto) 1.7 % (0.0-3.0) Basophils (%) (Auto) 0.7 % (0.0-2.0) Sodium Level 140 MMOL/L (136-145) Potassium Level 3.8 MMOL/L (3.5-5.1) Chloride Level 105 MMOL/L (98-107) Carbon Dioxide Level 29 MMOL/L (21-32) Anion Gap 7 mmol/L (5-15) Blood Urea Nitrogen 5 mg/dL (7-18) L Creatinine 0.7 MG/DL (0.55-1.30) Estimat Glomerular Filtration Rate > 60 mL/min (>60) Glucose Level 127 MG/DL (74-106) H Calcium Level 8.4 MG/DL (8.5-10.1) L Magnesium Level 1.9 MG/DL (1.8-2.4) Total Bilirubin 0.7 MG/DL (0.2-1.0) Aspartate Amino Transf (AST/SGOT) 84 U/L (15-37) H Alanine Aminotransferase (ALT/SGPT) 115 U/L (12-78) H Alkaline Phosphatase 62 U/L (46-116) Total Protein 6.6 G/DL (6.4-8.2) Albumin 3.0 G/DL (3.4-5.0) L Globulin 3.6 g/dL Albumin/Globulin Ratio 0.8 (1.0-2.7) L Height (Feet): 5 Height (Inches): 4.00 Weight (Pounds): 180 Medications Current Medications Medications (Trade) Dose Ordered Sig/Kelsey Route PRN Reason Start Time Stop Time Status Last Admin Dose Admin Acetaminophen (Tylenol) 650 mg Q4H PRN ORAL fever 07/26/19 20:45 08/25/19 20:44 07/28/19 08:27 Al Hydroxide/Mg Hydroxide (Mylanta II) 30 ml Q6H PRN ORAL dyspepsia 07/26/19 20:45 08/25/19 20:44 Dextrose (Dextrose 50%) 25 ml Q30M PRN IV Hypoglycemia 07/26/19 20:45 08/25/19 20:44 Dextrose (Dextrose 50%) 50 ml Q30M PRN IV Hypoglycemia 07/26/19 20:45 08/25/19 20:44 Dextrose/ Electrolytes 1,000 ml @ 50 mls/hr Q20H IV 07/27/19 14:17 08/26/19 14:16 07/27/19 15:36 Diphenhydramine HCl (Benadryl) 25 mg Q6H PRN ORAL Itching/Pruritis 07/26/19 20:45 08/25/19 20:44 Docusate Sodium (Colace) 100 mg EVERY 12 HOURS ORAL 07/26/19 21:00 08/25/19 20:59 07/28/19 08:11 Famotidine (Pepcid) 40 mg DAILY ORAL 07/27/19 09:00 08/26/19 08:59 07/28/19 08:12 Heparin Sodium (Porcine) (Heparin 5000 units/ml) 5,000 units EVERY 12 HOURS SUBQ 07/27/19 09:00 08/26/19 08:59 07/28/19 08:20 Lorazepam (Ativan) 1 mg Q4H PRN ORAL For Anxiety 07/26/19 20:45 08/02/19 20:44 Magnesium Hydroxide (Mom) 30 ml HSPRN PRN ORAL Constipation 07/26/19 20:45 08/25/19 20:44 Morphine Sulfate (Morphine Sulfate) 1 mg Q4H PRN IVP Mild Pain (Pain Scale 1-3) 07/26/19 20:45 08/02/19 20:44 Morphine Sulfate (Morphine Sulfate) 2 mg Q4H PRN IVP Moderate Pain (Pain Scale 4-6) 07/26/19 20:45 08/02/19 20:44 07/27/19 08:06 Morphine Sulfate (Morphine Sulfate) 4 mg Q4H PRN IVP Severe Pain (Pain Scale 7-10) 07/26/19 20:45 08/02/19 20:44 07/28/19 05:22 Ondansetron HCl (Zofran) 4 mg Q6H PRN IVP Nausea & Vomiting 07/26/19 20:45 08/25/19 20:44 07/27/19 15:33 Piperacillin Sod/ Tazobactam Sod 3.375 gm/Sodium Chloride 110 ml @ 27.5 mls/hr EVERY 8 HOURS IVPB 07/26/19 22:00 07/31/19 21:59 07/28/19 05:20 Temazepam (Restoril) 15 mg HSPRN PRN ORAL Insomnia 07/26/19 20:45 08/02/19 20:44 Assessment/Plan Assessment/Plan: ASSESSMENT Acute cholecystitis Status post lap freddy Hypo Mg Dehydration Migraine headaches PLAN of CARE MS floor IVF and dc when tolerating diet Empiric abx Pain management OOB as tolerated and ambulate IS while in bed DVT and GI prophylaxis Diet as tolerated A/emetic prn Mg replaced , -1.9 today pain controlled, tolerates diet, voided, had BM ready fro discharge if cleared by surgeon case discussed and evaluated by supervising physician Michelle Merida NP Jul 28, 2019 09:23
--- NOTE | 2019-07-28 09:42 | General Progress Note ---
Progress Note Progress Note surgery pod #1 doing well tolerating diet good uop flatus no n/v/f/c rx written instructions given follow up given d/c home Jeff Mi Jul 28, 2019 09:42
[2019-07-28] MEDS ORDERED: NORCO 5-325 TA1 EACH ORAL (10:28)
[2019-07-28] MEDS ORDERED: COLACE100 MG ORAL (10:30)
--- NOTE | 2019-07-28 11:17 | NUR ---
NURSE NOTES: Discharge pt with family member. patient was stable condition. all discharge instruction was given. verbalized understanding.
--- NOTE | 2019-07-28 19:45 | Internal Med Progress Note ---
Subjective Physician Name Stepan Benjamin Attending Physician Stepan Benjamin MD Allergies: Coded Allergies: No Known Allergies (Unverified , 07/26/19) Subjective Awake, alert, responsive, complains less abdominal pain,feeling better.. Objective Last Vital Signs Date Time Temp Pulse Resp B/P (MAP) Pulse Ox O2 Delivery O2 Flow Rate FiO2 07/28/19 09:00 Room Air 07/28/19 08:00 97.9 75 116/71 (86) 100 07/27/19 17:36 14 07/27/19 15:15 3 Laboratory Tests Test 07/28/19 04:35 White Blood Count 8.5 K/UL (4.8-10.8) # Red Blood Count 4.60 M/UL (4.20-5.40) Hemoglobin 13.3 G/DL (12.0-16.0) Hematocrit 39.2 % (37.0-47.0) Mean Corpuscular Volume 85 FL (80-99) Mean Corpuscular Hemoglobin 28.9 PG (27.0-31.0) Mean Corpuscular Hemoglobin Concent 34.0 G/DL (32.0-36.0) Red Cell Distribution Width 12.5 % (11.6-14.8) Platelet Count 207 K/UL (150-450) Mean Platelet Volume 7.7 FL (6.5-10.1) Neutrophils (%) (Auto) 67.3 % (45.0-75.0) Lymphocytes (%) (Auto) 22.6 % (20.0-45.0) Monocytes (%) (Auto) 7.8 % (1.0-10.0) Eosinophils (%) (Auto) 1.7 % (0.0-3.0) Basophils (%) (Auto) 0.7 % (0.0-2.0) Sodium Level 140 MMOL/L (136-145) Potassium Level 3.8 MMOL/L (3.5-5.1) Chloride Level 105 MMOL/L (98-107) Carbon Dioxide Level 29 MMOL/L (21-32) Anion Gap 7 mmol/L (5-15) Blood Urea Nitrogen 5 mg/dL (7-18) L Creatinine 0.7 MG/DL (0.55-1.30) Estimat Glomerular Filtration Rate > 60 mL/min (>60) Glucose Level 127 MG/DL (74-106) H Calcium Level 8.4 MG/DL (8.5-10.1) L Magnesium Level 1.9 MG/DL (1.8-2.4) Total Bilirubin 0.7 MG/DL (0.2-1.0) Aspartate Amino Transf (AST/SGOT) 84 U/L (15-37) H Alanine Aminotransferase (ALT/SGPT) 115 U/L (12-78) H Alkaline Phosphatase 62 U/L (46-116) Total Protein 6.6 G/DL (6.4-8.2) Albumin 3.0 G/DL (3.4-5.0) L Globulin 3.6 g/dL Albumin/Globulin Ratio 0.8 (1.0-2.7) L Intake and Output 07/27/19 07/28/19 19:00 07:00 Intake Total 1110.0 ml 240 ml Output Total 20 ml Balance 1090.0 ml 240 ml Intake Oral 240 ml IV Total 1110.0 ml Output Estimated Blood Loss 20 ml # Voids 3 Objective GENERAL: The patient is awake and responsive, in no acute distress. HEAD AND NECK: Pupils are equal and reactive to light. Anicteric. Neck was supple. No JVD. LUNGS: CTA. No wheezing or rales. HEART: S1, S2. Regular rhythm. No Murmur or gallops. ABDOMEN: Soft, nondistended. less tender in the right upper quadrant. No rebound tenderness. No fluid shift. Laparoscopic surgical incision intact. EXTREMITIES: No cyanosis, clubbing, or edema. NEUROLOGIC: Cranial nerves II through XII grossly intact. Motor is 5/5 in all extremities. RECTAL/GENITOURINARY: Refused and deferred. PSYCHIATRIC: Mood and affect is intact. Assessment/Plan Assessment/Plan ASSESSMENT: 1. Right upper quadrant pain, most likely secondary to the gallstone and acute cholecystitis status post of laparoscopic cholecystectomy (July 27, 2019). 2. Dehydration. 3. Migraine headache. PLAN: In surgical floor. We will follow up with Dr. Mi consultation from General Surgery. IV hydration. Code status is Full Code. DVT prophylaxis, heparin subcutaneous. Broad-spectrum antibiotic: Zosyn. DC home today. Stepan Benjamin MD Jul 28, 2019 19:45
--- NOTE | 2019-07-31 07:58 | Discharge Summary ---
Discharge Summary Discharge Summary _ DATE OF ADMISSION: 07/26/2019 DATE OF DISCHARGE: 07/28/2019 DISCHARGED BY: Dr. Benjamin REASON FOR ADMISSION: 34 years old female with past medical history significant for migraine headaches , gallstones, strong family history of gallstones, initially presented to [facility] complaining of abdominal pain, started 6 hours prior to arrival to emergency room with radiation to the back and associated with the nausea and vomiting. Pain reported as severe and persistent. Pain described as 10 out of 10 , located in epigastric and right upper quadrant , sharp and stabbing. No fever or chills. No dysuria or frequency. Shortly after initial evaluation patient was transferred to [facility] for further evaluation and possible surgical intervention . Patient was admitted for acute cholecystitis. CONSULTANTS: customer management specialist Dr. Ann surgery Dr. Mi [facility] COURSE: Patient initially was kept n.p.o. Patient started on IV fluids and empiric antibiotics. Surgeon seen and evaluated patient. Patient subsequently undergone laparoscopic cholecystectomy. Course of recovery was uneventful. Pain management was addressed as needed. Incentive spirometry provided encouraged while in the bed. Patient was able to ambulate without difficulty. DVT and GI prophylaxis provided. Patient started on diet as tolerated. Antiemetic were on board as needed. Patient was able to tolerate diet. Magnesium was replaced and stabilized. Patient had a bowel movement. Pathology ( available at the time of this dictation) revealed mild acute cholecystitis superimposed on chronic cholecystitis, cholelithiasis. Patient clinically stabilized and was ready for discharge home. FINAL DIAGNOSES: Acute cholecystitis Status post laparoscopic cholecystectomy Hypomagnesemia Dehydration Migraine headache DISCHARGE MEDICATIONS: See Medication Reconciliation list. DISCHARGE INSTRUCTIONS: Patient was discharged home. Follow-up with a surgeon as advised. Michelle Merida NP Jul 31, 2019 07:58
--- NOTE | 2019-07-31 16:29 | NUR ---
*-* INSURANCE *-* ALL CLINICALS AND REVIEWS HAVE BEEN FAXED TO: Ref# [id number] # [phone] FAX#[phone] Addendum: 07/31/19 at 1630 by STUART MARRERO CM DISCHARGE SUMMARY HAS BEEN FAXED
== END 2019-07-28 11:30 | disposition home or self-care (01) | DRG 419 ==
LOC: 3E 19:50 → UNDODISIN 07-28 11:30
PROC: 0FT44ZZ Resection of Gallbladder, Percutaneous Endoscopic Approach (ICD-10-PCS; principal; 2019-07-27 14:45)
DX: K80.00 Calculus of gallbladder with acute cholecystitis without obstruction (principal); E86.0 Dehydration; G43.909 Migraine, unspecified, not intractable, without status migrainosus; E83.42 Hypomagnesemia
CPT/HCPCS: 36415; 80053; 82150; 83690; 83735; 84100; 85025; 85610; 85730; 94003; 94150; J2250; J2405